=== PATIENT | female | born 1950 | race Two or more races ===

== ENCOUNTER 2022-08-13 17:45 | Emergency (ER) | payer MEDICARE, OTHER ==
[~2022-08-13] VITALS: Ht 162.6 cm; Wt 57.2 kg
--- NOTE | 2022-08-13 18:00 | NUR ---
RECEIVED PT 72 YRS FEMALE CAME FROM SNF BY EMT FOR PSYCH EVALUATION PT CONFUSED NOT FALLOW COMMAND
--- NOTE | 2022-08-13 18:10 | NUR ---
EXAMIN BY DR. INMAN
--- NOTE | 2022-08-13 18:15 | NUR ---
BLOOD DROW BY LAB TACH
[2022-08-13 18:33] LABS: BASOPHILS % (AUTO) 0.4 % (0.0-2.0); EOSINOPHILS % (AUTO) 2.7 % (0.0-6.0); HEMATOCRIT 33 % (33-45); HEMOGLOBIN 10.8 g/dL (11.5-14.8); LYMPHOCYTES # (AUTO) 2.1 K/uL (0.8-4.8); LYMPHOCYTES % (AUTO) 22.6 % (20.0-44.0); MEAN CORPUSCULAR HGB CONC 33 g/dl (31.0-36.0); MEAN CORPUSCULAR VOLUME 92 fL (82-100); MONOCYTES # (AUTO) 1.1 K/uL (0.1-1.30); MONOCYTES % (AUTO) 12.4 % (2.0-12.0); NEUTROPHILS # (AUTO) 5.7 K/uL (1.8-8.9); NEUTROPHILS % (AUTO) 61.9 % (43.0-81.0); PLATELET COUNT (AUTO) 432 K/uL (150-450); RED BLOOD CELL COUNT(AUTO) 3.55 MIL/uL (4.0-5.2); WHITE BLOOD COUNT (AUTO) 9.2 K/uL (4.3-11.0)
[2022-08-13] MEDS ORDERED: QUET25TA PO (18:43)
[2022-08-13] MEDS ORDERED: ACET-2605 PO (18:43)
[2022-08-13] MEDS ORDERED: TYL2T PO (18:43)
[2022-08-13] MEDS ORDERED: MAGN400O6 PO (18:43)
[2022-08-13] MEDS ORDERED: SENN-261 PO (18:43)
[2022-08-13] MEDS ORDERED: LEVO175T7 PO (18:43)
[2022-08-13] MEDS ORDERED: ACET-868 PO (18:43)
[2022-08-13] MEDS ORDERED: MEGE400O4 PO (18:43)
[2022-08-13] MEDS ORDERED: ERGO500040 PO (18:43)
[2022-08-13] MEDS ORDERED: MULT-447 PO (18:43)
[2022-08-13] MEDS ORDERED: DOCU-141 PO (18:43)
[2022-08-13] MEDS ORDERED: MEMA10TA PO (18:43)
[2022-08-13 18:54] LABS: CALCIUM, SERUM 9.3 mg/dL (8.5-10.1); CARBON DIOXIDE 28 mmol/L (21-32); CHLORIDE 112 mmol/L (98-107); CREATININE 0.5 mg/dL (0.6-1.3); GLUCOSE 98 mg/dL (74-106); POTASSIUM 3.8 mmol/L (3.5-5.1); SODIUM SERUM 146 mmol/L (136-145); UREA NITROGEN, BLOOD 16 mg/dL (7-18)
[2022-08-13 19:00] LABS: ALANINE AMINOTRANSFERASE 18 U/L (12-78); ALBUMIN 3.3 g/dL (3.4-5.0); ALCOHOL, BLOOD < 3 mg/dL (0-0); ALKALINE PHOSPHATASE 71 U/L (46-116); ASPARTATE AMINOTRANSFERASE 13 U/L (15-37); BILIRUBIN,DIRECT 0.1 mg/dL (0.0-0.2); BILIRUBIN,TOTAL 0.3 mg/dL (0.2-1.0); TOTAL PROTEIN, SERUM 7.3 g/dL (6.4-8.2)
--- NOTE | 2022-08-13 19:24 | NUR ---
HAND OFF WILBUR GASPAR
--- NOTE | 2022-08-13 19:35 | NUR ---
URINE COLLECTED AND SENT TO LAB
--- NOTE | 2022-08-13 19:37 | NUR ---
MIKE SENT TO LAB
[2022-08-13 20:13] LABS: BILIRUBIN,URINE NEGATIVE (NEGATIVE); COLOR,URINE YELLOW (YELLOW); LEUKOCYTE ESTERASE ,URINE NEGATIVE (NEGATIVE); NITRITE, URINE NEGATIVE (NEGATIVE); PROTEIN,URINE NEGATIVE (NEGATIVE); UGLUCOSE NEGATIVE (NEGATIVE); UROBILINOGEN,URINE 0.2 EU/dL (0.2)
--- NOTE | 2022-08-13 20:21 | NUR ---
IZABELA PAGED FOR PSYCH EVAL
[2022-08-13 21:10] LABS: BACTERIA,URINE None seen /HPF (None Seen); RBC,URINE 0-2 /HPF (0-2); SQUAMOUS EPITHELIAL CELL,UR 0-2 /HPF (None Seen); WBC,URINE 0-2 /HPF (0-3)
--- NOTE | 2022-08-14 02:47 | NUR ---
PT SLEEPING COMFORTABLY BREATHING UNLABORED. SITTER AT BEDSIDE.
[2022-08-14 04:42] VITALS: BP 108/60
--- NOTE | 2022-08-14 04:42 | NUR ---
Orlin gabriel in ED - 08/14/22 at 0615 by LINDA Patient discharged to home in stable condition. Written and verbal after care instructions given. Patient verbalizes understanding of instruction.
--- NOTE | 2022-08-14 10:40 | NUR ---
[facility] CALLED FOR TRANSPORT ETA 60 MINS.
--- NOTE | 2022-08-14 12:25 | NUR ---
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
== END 2022-08-14 12:25 ==
LOC: ER 18:05
DX: G30.9 Alzheimer's disease, unspecified (principal); F02.82 Dementia in other diseases classified elsewhere, unspecified severity, with psychotic disturbance; F02.818 Dementia in other diseases classified elsewhere, unspecified severity, with other behavioral disturbance; E03.9 Hypothyroidism, unspecified; Z79.890 Hormone replacement therapy; Z79.899 Other long term (current) drug therapy; R45.88 Nonsuicidal self-harm; Z20.822 Contact with and (suspected) exposure to COVID-19; D63.8 Anemia in other chronic diseases classified elsewhere; F50.89 Other specified eating disorder; Z68.21 Body mass index [BMI] 21.0-21.9, adult
CPT/HCPCS: 36415; 80048-TC; 80076-TC; 81001; 85025-TC; 87081-TC; C9803; G0480